=== PATIENT | female | born 1970 | race Caucasian/White ===

== ENCOUNTER 2017-07-03 10:09 | Emergency (ER) | payer OTHER, BC ==
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
[2017-07-03 11:42] VITALS: BP 162/109
== END 2017-07-03 11:42 | disposition home or self-care (01) ==
LOC: ER 10:09
DX: R42 Dizziness and giddiness (principal); I10 Essential (primary) hypertension; V89.2XXA Person injured in unspecified motor-vehicle accident, traffic, initial encounter
CPT/HCPCS: 99284